=== PATIENT | female | born 1935 | race Two or more races ===

== ENCOUNTER 2023-04-05 17:53 | Emergency (ER) | payer MEDICARE, BC ==
[~2023-04-05] VITALS: Ht 172.7 cm; Wt 65.9 kg
[2023-04-05 18:05] VITALS: PULSE 92; RESP 22; O2SAT 95
[2023-04-05 19:45] VITALS: PULSE 96; RESP 18; O2SAT 93
[2023-04-05 19:45] LABS: Hematocrit 35.9 % (36.0-46.0); Hemoglobin 11.4 g/dL (12.2-16.2); Mean Corpuscular Hemoglobin 27.8 pg (28.0-32.0); Mean Corpuscular Hgb Conc. 31.8 g/dL (32.0-36.0); Mean Corpuscular Volume 87.3 fL (80.0-100.0); Red Blood Cells 4.11 10^6/uL (4.0-5.20); Red Cell Distribution Width 16.9 % (11.8-14.3); White Blood Cell 22.1 10^3/uL (4.4-10.8)
[2023-04-05 19:49] LABS: Basophils % (manual) 0 (0.0-2.0); Blast Cells 0; Eosinophils % (manual) 0 (0-7); Metamyelocytes % 0; Myelocytes % 0; Promyelocytes % 0
[2023-04-05 20:05] LABS: INR 1.22 (0.9-1.15); Partial Thromboplastin Time 34.2 SEC (24.5-34.5); Prothrombin Time 12.6 sec (9.3-11.8)
[2023-04-05 20:06] LABS: Alanine Aminotransferase 15 U/L (7-40); Albumin 4.1 g/dL (3.2-4.8); Alkaline Phosphatase 104 U/L (46-116); Anion Gap 6 (5-15); Aspartate Aminotransferase 44 U/L (13-40); BUN/Creatinine Ratio 20.2 (10.0-20.0); Blood Urea Nitrogen 18 mg/dL (9-23); Calcium 9.8 mg/dL (8.5-10.1); Carbon Dioxide 26 mmol/L (20-30); Chloride 104 mmol/L (98-107); Glucose 151 mg/dL (74-106); Potassium 4.3 mmol/L (3.5-5.1); Sodium 136 mmol/L (136-145)
[2023-04-05 20:07] LABS: Bilirubin, Total 1.5 mg/dL (0.2-1.0); Total Protein 6.7 g/dL (5.7-8.2)
[2023-04-05] MEDS ORDERED: TRAM50TA2 PO ×2 (20:10→20:45)
[2023-04-05] MEDS ORDERED: traMADol HCL 50 MG TAB PO ONE (20:15)
[2023-04-05 20:18] LABS: Band Neutrophils % (manual) 1; Lymphocytes % (manual) 63 (10.0-50.0); Monocytes % (manual) 6 (0-12); Reactive Lymphocytes 6
[2023-04-05 20:19] LABS: Anisocytosis Slight; Platelet Estimate Adequate
[2023-04-05 20:40] VITALS: BP 148/77; PULSE 97; RESP 18; O2SAT 95
== END 2023-04-05 20:59 | disposition home or self-care (01) ==
LOC: ER 17:53
DX: S32.592A Other specified fracture of left pubis, initial encounter for closed fracture (principal); Z79.899 Other long term (current) drug therapy; Z79.01 Long term (current) use of anticoagulants; W18.02XA Striking against glass with subsequent fall, initial encounter; Y93.01 Activity, walking, marching and hiking; Y92.89 Other specified places as the place of occurrence of the external cause; Y99.8 Other external cause status
CPT/HCPCS: 36415; 72192; 80053; 85007; 85027; 85610; 85730